=== PATIENT | female | born 1995 | race African-American/Black ===

== ENCOUNTER 2018-10-24 06:39 | Emergency (ER) | payer BC ==
--- NOTE | 2018-10-24 06:40 | EDM.PDOC ---
ED HPI GENERAL MEDICAL PROBLEM - General Chief Complaint: Neurological Problem Stated Complaint: Seizure Time Seen by Provider: 10/24/18 06:39 Source of Information: Reports: Patient, EMS, EMS Notes Reviewed ([facility] records not available). Denies: Old Records (No [facility] records available) History Limitations: Reports: Altered Mental Status - History of Present Illness INITIAL COMMENTS - FREE TEXT/NARRATIVE: Patient was brought to the emergency room via ambulance with elementary principal accompaniment with elementary principal intersecting the agency service coordinator prior to arrival to our facility. agency service coordinator did applying O2 by nonrebreather mask with a running lock placed by the paramedics with 1 mg of Versed given prior to arrival. The patient had an apparent grand mal seizure with secondary syncope, however no history of significant fall or injury. The seizure occurred at about 05:30 a.m. with an approximately 20 minute episode of nonresponsiveness, however no history of aspiration, urinary/stool incontinence, etc. Prior to the onset of the above seizure the patient had been experiencing 9/10 bilateral frontal headaches with previous history of intermittent chronic headaches and ibuprofen use. After Versed was administered the patient did become immediately responsive with some agitation but no direct postictal sedation. The patient denies any chest pain/ pressure, heart flutter, dizziness, orthostasis, orthopnea, diaphoresis, paresthesias, recent decreased exercise tolerance, or any other anginal-type symptoms. No recent history of abdominal pain, heartburn, nausea, diarrhea, melena, gross hematochezia, or any food intolerance, including fatty foods, etc.. The patient also denies any recent fever, cough, wheezing, dyspnea, etc.. Note history taken after patient became responsive in the emergency room as below. Accu-Chek by paramedics of 118 mg percent. Onset: Today, Sudden, Unknown/Unsure Onset Date: 10/24/18 Onset Time: 05:30 Duration: Constant Location: Reports: Head (Headache). Denies: Face, Neck, Chest, Back, Upper Extremity, Left, Upper Extremity, Right, Radiates to Quality: Reports: Throbbing Severity: Severe Improves with: Reports: None Worsens with: Reports: None Context: Reports: Other (As above). Denies: Sick Contact, Trauma Associated Symptoms: Reports: Confusion (Postictal confusion without significant sedation), Headaches, Seizure, Syncope. 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 Full term without complications during pregnancies or deliveries Musculoskeletal History: Reports: None. Denies: Fracture Neurological History: Reports: Headaches, Chronic. Denies: Seizure Psychiatric History: Reports: None Endocrine/Metabolic History: Reports: None Hematologic History: Reports: None Immunologic History: Reports: None Oncologic (Cancer) History: Reports: None Dermatologic History: Reports: None - Past Surgical History Head Surgeries/Procedures: Reports: None HEENT Surgical History: Reports: None Cardiovascular Surgical History: Reports: Valve Replacement Respiratory Surgical History: Reports: None GI Surgical History: Reports: None Female Surgical History: Reports: None Male Surgical History: Reports: None Endocrine Surgical History: Reports: None Neurological Surgical History: Reports: None Musculoskeletal Surgical History: Reports: None Oncologic Surgical History: Reports: None Dermatological Surgical History: Reports: None Social & Family History - Tobacco Use Smoking Status *Q: Current Every Day Smoker Years of Tobacco use: 5 Packs/Tins Daily: 0.5 Used Tobacco, but Quit: No Smoking Cessation Information Provided To Patient: Yes Second Hand Smoke Exposure: No Second Hand Smoke Education Provided: No - Alcohol Use Alcohol Use History: Yes Days Per Week of Alcohol Use: 0 Number of Drinks Per Day: 3 Number of Drinks Per Day Comment: Usually wine every 2 months. No previous DWIs , problems with alcohol abuse, etc. Total Drinks Per Week: 0 Alcohol Use in Last Twelve Months: Yes Alcohol Use Frequency: Rarely - Recreational Drug Use Recreational Drug Use: No Drug Use in Last 12 Months: No Recreational Drug Type: Denies: Amphetamines (Speed), Cocaine, Heroin, LSD (Acid ), Marijuana/Hashish, Methamphetamine, Morphine, Oxycodone - Living Situation & Occupation Living situation: Reports: Single (Never however 2 children), Alone Occupation: Employed ([employer]) ED ROS GENERAL - Review of Systems Review Of Systems: ROS reveals no pertinent complaints other than HPI. ED EXAM, NEURO - Physical Exam Exam: See Below Exam Limited By: Altered Mental Status General Appearance: No Apparent Distress, Anxious (Moderate), Lethargic Eye Exam: Bilateral Eye: EOMI, Normal Fundi (No nystagmus with seizure), Normal Inspection (Other than below), Periorbital Changes, Other (Note left upward gaze bilaterally with seizure activity however otherwise normal) Ears: Normal External Exam, Normal Canal, Hearing Grossly Normal, Normal TMs Nose: Normal Mucosa, No Blood, Clear Rhinorrhea (Moderate bilaterally) Throat/Mouth: Normal Inspection, Normal Lips, Normal Teeth, Normal Gums, Normal Oropharynx, Normal Voice, No Airway Compromise, Other (No evidence of tongue injury). No: Dysphagia, Perioral Cyanosis Head Exam: Atraumatic, Normocephalic. No: Facial Swelling, Facial Tenderness, Sinus Tenderness Neck: Normal Inspection, Supple, Non-Tender, Full Range of Motion, Other ( Negative meningeal signs). No: Carotid Bruit, Lymphadenopathy (L), Lymphadenopathy (R), Thyromegaly Respiratory/Chest: No Respiratory Distress, Lungs Clear, Normal Breath Sounds, No Accessory Muscle Use, Chest Non-Tender. No: Pleural Rub, Retractions Cardiovascular: Normal Peripheral Pulses, Regular Rate, Rhythm, No Edema, No Gallop, No JVD, No Murmur, No Rub. No: Gallop/S3, Gallop/S4, Friction Rub GI/Abdominal: Normal Bowel Sounds, Soft, Non-Tender, No Organomegaly, No Distention, No Abnormal Bruit, No Mass. No: Guarding (Female) Exam: Deferred Rectal (Female) Exam: Deferred Neurological: Normal Dorsiflexion, Normal Reflexes (Negative Babinski's, finger to nose, and pronator rotation tests. No evidence of facial paresis, tongue deviation, orthostasis, etc. While awake. Otherwise left upperward with seizure activity and borderline occasional clonic activity) Back Exam: Normal Inspection, Full Range of Motion. No: CVA Tenderness (L), CVA Tenderness (R), Muscle Spasm Extremities: Normal Inspection, Normal Range of Motion, Non-Tender, No Pedal Edema, Normal Capillary Refill. No: Angélica's Sign Psychiatric: Anxious (Moderate), Depressed Mood (Mild to moderate), Tearful Skin Exam: Warm, Dry, Intact, Normal Color, No Rash, Stud(s) (Multiple). No: Diaphoretic, Wound/Incision EKG INTERPRETATION EKG Date: 10/24/18 Time: 07:31 Rhythm: NSR Rate (Beats/Min): 86 [place]: Normal (Neutral cardiac axis) P-Wave: Enlarged (Mild diffuse biphasic P waves with pulmonary hypertension by EKG) QRS: Normal (Neuro 0.08 seconds) ST-T: Other (T-wave inversion in leads 3, V1, and V2) QT: Normal MI/PQ Interval: 0.15 seconds Comparison: NA - No Prior EKG EKG Interpretation Comments: 1. Questionable anterior wall cardiac ischemia versus lead placement 2. Probable left atrial enlargement. Course - Vital Signs Last Recorded V/S: Last Vital Signs Temp 37.0 C 10/24/18 07:11 Pulse 83 10/24/18 09:02 Resp 22 H 10/24/18 09:02 BP 107/55 L 10/24/18 09:02 Pulse Ox 99 10/24/18 09:02 Vital Signs - 24 hr 10/24/18 10/24/18 10/24/18 06:42 07:10 07:11 Temperature [ 36.8 C 37.0 C Temporal] Pulse, 76 82 Peripheral [ Left Pulse Oximetry] Respiratory 22 H 22 H Rate Blood Pressure 116/71 104/60 [Left Upper Arm ] O2 Sat by Pulse 100 99 Oximetry O2 Sat by Pulse 99 Oximetry [Room Air] 10/24/18 10/24/18 10/24/18 07:31 07:45 08:00 Temperature [ Temporal] Pulse, 87 92 92 Peripheral [ Left Pulse Oximetry] Respiratory 24 H 23 H 22 H Rate Blood Pressure 106/66 120/56 L 103/65 [Left Upper Arm ] O2 Sat by Pulse 98 100 100 Oximetry O2 Sat by Pulse Oximetry [Room Air] 10/24/18 10/24/18 10/24/18 08:15 08:32 08:47 Temperature [ Temporal] Pulse, 83 87 84 Peripheral [ Left Pulse Oximetry] Respiratory 22 H 20 19 Rate Blood Pressure 105/70 111/72 107/67 [Left Upper Arm ] O2 Sat by Pulse 100 100 87 L Oximetry O2 Sat by Pulse Oximetry [Room Air] 10/24/18 09:02 Temperature [ Temporal] Pulse, 83 Peripheral [ Left Pulse Oximetry] Respiratory 22 H Rate Blood Pressure 107/55 L [Left Upper Arm ] O2 Sat by Pulse 99 Oximetry O2 Sat by Pulse Oximetry [Room Air] - Orders/Labs/Meds Orders: Active Orders 24 hr Category Date Time Status Cardiac Monitoring [RC] STAT Care 10/24/18 06:42 Active EKG Documentation Completion [RC] ASDIRECTED Care 10/24/18 06:42 Active Oxygen Therapy, ED [RC] CONTINUOUS Care 10/24/18 06:42 Active Peripheral IV Care [RC] . DIRECTED Care 10/24/18 06:42 Active Pulse Oximetry [RC] CONTINUOUS Care 10/24/18 06:42 Active Up With Assistance [RC] ASDIRECTED Care 10/24/18 06:42 Active Vital Signs [RC] PFP Care 10/24/18 06:42 Active Nothing per Oral Now Diet [DIET] Diet 10/24/18 Breakfast Active Chest 1V Frontal [CR] Stat Exams 10/24/18 06:42 Taken Head wo Cont [CT] Stat Exams 10/24/18 06:42 Taken CULTURE URINE [RM] Routine Lab 10/24/18 06:57 Received PROLACTIN [REF] Stat Lab 10/24/18 06:57 Received D5 1/2 NS w/ 40 mEq/L KCl 1,000 ml Med 10/24/18 08:45 Active IV ASDIRECTED Phenytoin 1,000 mg Med 10/24/18 06:45 Active Sodium Chloride 0.9% [Normal Saline] 100 ml IV Q8H Sodium Chloride 0.9% [Saline Flush] Med 10/24/18 06:42 Active 10 ml FLUSH ASDIRECTED PRN Obtain Past Medical Record [OM.PC] Stat Oth 10/24/18 06:42 Active Peripheral IV Insertion Adult [OM.PC] Stat Oth 10/24/18 06:42 Ordered Resuscitation Status Stat Resus Stat 10/24/18 06:42 Ordered Medication Orders Phenytoin Sodium 1,000 mg/ (Sodium Chloride) 120 mls @ 480 mls/hr IV Q8H [facility] Last Admin: 10/24/18 06:47 Dose: 480 mls/hr Potassium Chloride/Dextrose/Sod Cl (D5 1/2 Ns W/ 40 Meq/L Kcl) 1,000 mls @ 125 mls/hr IV ASDIRECTED RADHA Last Admin: 10/24/18 08:41 Dose: 125 mls/hr Sodium Chloride (Saline Flush) 10 ml FLUSH ASDIRECTED PRN PRN Reason: Keep Vein Open Labs: Laboratory Tests 10/24/18 10/24/18 10/24/18 Range/Units 06:57 06:57 06:57 WBC 7.7 (4.0-10.2) K/uL RBC 4.30 (3.77-5.09) M/uL Hgb 14.1 (11.7-15.5) g/dL Hct 41.0 (34.0-46.0) % MCV 95.3 (84.0-98.0) fL MCH 32.8 (28.2-33.3) pg MCHC 34.4 (31.7-36.0) g/dL RDW 13.3 (11.2-14.1) % Plt Count 346 (150-350) K/uL Neut % (Auto) 53.9 (45.0-80.0) % Lymph % (Auto) 32.7 (10.0-50.0) % Towns % (Auto) 7.4 (2.0-14.0) % Eos % (Auto) 5.6 H (0.0-5.0) % Baso % (Auto) 0.4 (0.0-2.0) % Neut # (Auto) 4.18 (1.40-7.00) K/uL Lymph # (Auto) 2.53 (0.50-3.50) K/uL Towns # (Auto) 0.57 (0.00-1.00) K/uL Eos # (Auto) 0.43 (0.00-0.50) K/uL Baso # (Auto) 0.03 (0.00-0.20) K/uL PT 10.2 (9.5-12.0) SEC INR 0.9 APTT 27.3 (21.0-31.3) SEC D-Dimer, Quantitative (0-400) ng/mL Sodium (136-145) mmol/L Potassium (3.5-5.1) mmol/L Chloride (98-107) mmol/L Carbon Dioxide (21.0-32.0) mmol/L BUN (7-18) mg/dL Creatinine (0.51-1.17) mg/dL Est Cr Clr Drug Dosing Estimated GFR (MDRD) mL/min Glucose (74-106) mg/dL Lactic Acid (0.4-2.0) mmol/L Uric Acid (2.6-7.2) mg/dL Calcium (8.5-10.1) mg/dL Magnesium (1.8-2.4) mg/dL Total Bilirubin (0.2-1.0) mg/dL AST (15-37) U/L ALT (12-78) U/L Alkaline Phosphatase (46-116) IU/L Creatine Kinase (26-308) U/L Creatine Kinase Index (0.0-2.5) % CK-MB (CK-2) (0.00-3.60) ng/mL Troponin I (0.000-0.056) ng/mL NT-Pro-B Natriuret Pep (0-125) pg/mL Total Protein (6.4-8.2) g/dL Albumin (3.4-5.0) g/dL TSH, Ultra Sensitive (0.358-3.740) mIU/mL HCG, Qual (NEGATIVE) Specimen Type [place] Urine Color Light yellow Urine Appearance Clear Urine pH 7.0 (5.0-9.0) Ur Specific [place] 1.010 (1.005-1.030) Urine Protein Negative (NEGATIVE) mg/dL Urine Glucose (UA) Negative (NEGATIVE) mg/dL Urine Ketones Negative (NEGATIVE) mg/dL Urine Occult Blood Moderate H (NEGATIVE) Urine Nitrite Negative (NEGATIVE) Urine Bilirubin Negative (NEGATIVE) Urine Urobilinogen 0.2 (0.2-1.0) E.U./dL Ur Leukocyte Esterase Negative (NEGATIVE) Urine RBC Not seen /HPF Urine WBC 0-5 /HPF Ur Epithelial Cells Few /LPF Urine Bacteria Few (NONE TO FEW) /HPF Urine Opiates Screen (NEGATIVE) Ur Barbiturates Screen (NEGATIVE) Ur Amphetamine Screen (NEGATIVE) U Methamphetamines Scrn (NEGATIVE) U Benzodiazepines Scrn (NEGATIVE) U Cocaine Metab Screen (NEGATIVE) U Marijuana (THC) Screen (NEGATIVE) Ethyl Alcohol (0.000-0.080) g/dL 10/24/18 10/24/18 10/24/18 Range/Units 06:57 06:57 06:57 WBC (4.0-10.2) K/uL RBC (3.77-5.09) M/uL Hgb (11.7-15.5) g/dL Hct (34.0-46.0) % MCV (84.0-98.0) fL MCH (28.2-33.3) pg MCHC (31.7-36.0) g/dL RDW (11.2-14.1) % Plt Count (150-350) K/uL Neut % (Auto) (45.0-80.0) % Lymph % (Auto) (10.0-50.0) % Towns % (Auto) (2.0-14.0) % Eos % (Auto) (0.0-5.0) % Baso % (Auto) (0.0-2.0) % Neut # (Auto) (1.40-7.00) K/uL Lymph # (Auto) (0.50-3.50) K/uL Towns # (Auto) (0.00-1.00) K/uL Eos # (Auto) (0.00-0.50) K/uL Baso # (Auto) (0.00-0.20) K/uL PT (9.5-12.0) SEC INR APTT (21.0-31.3) SEC D-Dimer, Quantitative 285 (0-400) ng/mL Sodium 143 (136-145) mmol/L Potassium 2.8 L* (3.5-5.1) mmol/L Chloride 103 (98-107) mmol/L Carbon Dioxide 27.4 (21.0-32.0) mmol/L BUN 2 L (7-18) mg/dL Creatinine 0.38 L (0.51-1.17) mg/dL Est Cr Clr Drug Dosing TNP Estimated GFR (MDRD) > 60 mL/min Glucose 91 (74-106) mg/dL Lactic Acid 1.1 (0.4-2.0) mmol/L Uric Acid 5.2 (2.6-7.2) mg/dL Calcium 9.1 (8.5-10.1) mg/dL Magnesium 1.8 (1.8-2.4) mg/dL Total Bilirubin 0.3 (0.2-1.0) mg/dL AST 28 (15-37) U/L ALT 30 (12-78) U/L Alkaline Phosphatase 111 (46-116) IU/L Creatine Kinase 468 H (26-308) U/L Creatine Kinase Index 0.4 (0.0-2.5) % CK-MB (CK-2) 2.10 (0.00-3.60) ng/mL Troponin I 0.000 (0.000-0.056) ng/mL NT-Pro-B Natriuret Pep 35 (0-125) pg/mL Total Protein 7.9 (6.4-8.2) g/dL Albumin 3.8 (3.4-5.0) g/dL TSH, Ultra Sensitive 0.616 (0.358-3.740) mIU/mL HCG, Qual (NEGATIVE) Specimen Type Urine Color Urine Appearance Urine pH (5.0-9.0) Ur Specific [place] (1.005-1.030) Urine Protein (NEGATIVE) mg/dL Urine Glucose (UA) (NEGATIVE) mg/dL Urine Ketones (NEGATIVE) mg/dL Urine Occult Blood (NEGATIVE) Urine Nitrite (NEGATIVE) Urine Bilirubin (NEGATIVE) Urine Urobilinogen (0.2-1.0) E.U./dL Ur Leukocyte Esterase (NEGATIVE) Urine RBC /HPF Urine WBC /HPF Ur Epithelial Cells /LPF Urine Bacteria (NONE TO FEW) /HPF Urine Opiates Screen (NEGATIVE) Ur Barbiturates Screen (NEGATIVE) Ur Amphetamine Screen (NEGATIVE) U Methamphetamines Scrn (NEGATIVE) U Benzodiazepines Scrn (NEGATIVE) U Cocaine Metab Screen (NEGATIVE) U Marijuana (THC) Screen (NEGATIVE) Ethyl Alcohol 0.002 (0.000-0.080) g/dL 10/24/18 10/24/18 Range/Units 06:57 06:57 WBC (4.0-10.2) K/uL RBC (3.77-5.09) M/uL Hgb (11.7-15.5) g/dL Hct (34.0-46.0) % MCV (84.0-98.0) fL MCH (28.2-33.3) pg MCHC (31.7-36.0) g/dL RDW (11.2-14.1) % Plt Count (150-350) K/uL Neut % (Auto) (45.0-80.0) % Lymph % (Auto) (10.0-50.0) % Towns % (Auto) (2.0-14.0) % Eos % (Auto) (0.0-5.0) % Baso % (Auto) (0.0-2.0) % Neut # (Auto) (1.40-7.00) K/uL Lymph # (Auto) (0.50-3.50) K/uL Towns # (Auto) (0.00-1.00) K/uL Eos # (Auto) (0.00-0.50) K/uL Baso # (Auto) (0.00-0.20) K/uL PT (9.5-12.0) SEC INR APTT (21.0-31.3) SEC D-Dimer, Quantitative (0-400) ng/mL Sodium (136-145) mmol/L Potassium (3.5-5.1) mmol/L Chloride (98-107) mmol/L Carbon Dioxide (21.0-32.0) mmol/L BUN (7-18) mg/dL Creatinine (0.51-1.17) mg/dL Est Cr Clr Drug Dosing Estimated GFR (MDRD) mL/min Glucose (74-106) mg/dL Lactic Acid (0.4-2.0) mmol/L Uric Acid (2.6-7.2) mg/dL Calcium (8.5-10.1) mg/dL Magnesium (1.8-2.4) mg/dL Total Bilirubin (0.2-1.0) mg/dL AST (15-37) U/L ALT (12-78) U/L Alkaline Phosphatase (46-116) IU/L Creatine Kinase (26-308) U/L Creatine Kinase Index (0.0-2.5) % CK-MB (CK-2) (0.00-3.60) ng/mL Troponin I (0.000-0.056) ng/mL NT-Pro-B Natriuret Pep (0-125) pg/mL Total Protein (6.4-8.2) g/dL Albumin (3.4-5.0) g/dL TSH, Ultra Sensitive (0.358-3.740) mIU/mL HCG, Qual Negative (NEGATIVE) Specimen Type Urine Color Urine Appearance Urine pH (5.0-9.0) Ur Specific [place] (1.005-1.030) Urine Protein (NEGATIVE) mg/dL Urine Glucose (UA) (NEGATIVE) mg/dL Urine Ketones (NEGATIVE) mg/dL Urine Occult Blood (NEGATIVE) Urine Nitrite (NEGATIVE) Urine Bilirubin (NEGATIVE) Urine Urobilinogen (0.2-1.0) E.U./dL Ur Leukocyte Esterase (NEGATIVE) Urine RBC /HPF Urine WBC /HPF Ur Epithelial Cells /LPF Urine Bacteria (NONE TO FEW) /HPF Urine Opiates Screen Negative (NEGATIVE) Ur Barbiturates Screen Negative (NEGATIVE) Ur Amphetamine Screen Negative (NEGATIVE) U Methamphetamines Scrn Negative (NEGATIVE) U Benzodiazepines Scrn Negative (NEGATIVE) U Cocaine Metab Screen Negative (NEGATIVE) U Marijuana (THC) Screen Positive H (NEGATIVE) Ethyl Alcohol (0.000-0.080) g/dL Meds: Medications Generic Name Dose Route Start Last Admin Trade Name Freq PRN Reason Stop Dose Admin Phenytoin Sodium 1,000 mg/ 120 mls @ 480 mls/hr 10/24/18 06:45 10/24/18 06:47 Sodium Chloride IV 480 mls/hr Q8H RADHA Administration Potassium Chloride/Dextrose/Sod Cl 1,000 mls @ 125 mls/hr 10/24/18 08:45 09/30 08:41 D5 1/2 Ns W/ 40 Meq/L Kcl IV 125 mls/hr ASDIRECTED RADHA Administration Sodium Chloride 10 ml 10/24/18 06:42 Saline Flush FLUSH ASDIRECTED PRN Keep Vein Open Discontinued Medications Generic Name Dose Route Start Last Admin Trade Name Freq PRN Reason Stop Dose Admin Diazepam 5 mg 10/24/18 06:45 10/24/18 07:05 Valium IV 10/24/18 06:46 5 mg ONETIME ONE Administration Diazepam 2.5 mg 10/24/18 07:11 10/24/18 07:16 Valium IV 10/24/18 07:12 2.5 mg ONETIME ONE Administration Famotidine 40 mg 10/24/18 06:42 10/24/18 07:39 Pepcid IVPUSH 10/24/18 06:43 40 mg ONETIME ONE Administration - Radiology Interpretation Free Text/Narrative:: Monitor shows normal sinus rhythm and with heart rate in the 70s to 90s with very occasional PVCs but no other significant arrhythmia Chest x-ray, portable, shows somewhat poor inspiratory film with borderline cardiomegaly and centralized pulmonary congestion but no pulmonary infiltrates, pneumothorax, etc. . Moderate elevated right hemidiaphragm. Telephone consultation at 07:40 hours with the radiology department at [facility] with preliminary verbal report of noncontrast CT of the head. No evidence of acute findings, including cerebral hemorrhage, CVA, etc. CT Results Date: 10/24/18 CT Results Time: 07:40 Departure - Departure Time of Disposition: 09:25 Disposition: DC/Tfer to [facility] 02 Condition: Good Clinical Impression: Grand mal seizure, PVCs (premature ventricular contractions), Mixed anxiety depressive disorder, Hypokalemia, Illicit drug use, Tobacco abuse counseling Headache Qualifiers: Headache type: unspecified Headache chronicity pattern: acute headache Intractability: intractable Qualified Code(s): R51 - Headache - Discharge Information *PRESCRIPTION DRUG MONITORING PROGRAM REVIEWED*: Not Applicable *COPY OF PRESCRIPTION DRUG MONITORING REPORT IN PATIENT SABRINA: Not Applicable Referrals: PCP,None [Primary Care Provider] - Forms: ED Department Discharge, Interfacility Transfer EMTALA - Problem List & Annotations (1) Grand mal seizure SNOMED Code(s): 10810422 Code(s): G40.409 - OTH GENERALIZED EPILEPSY, NOT INTRACTABLE, W/O STAT EPI Status: Acute Priority: High Onset Date: 10/24/18 Annotation/Comment:: Recurrent borderline status activity 3 until completion of above treatment regimen with minimal tonic reaction, however persistent left upper gaze with each episode. Note that each episode lasted for about 5 minutes with some moderate brief postictal confusion and anxiety but no significant sedation. No evidence of incontinence either prior to arrival or during emergency room care. Note that patient did receive 1 g of Versed from the elementary principal as above with 5 mg of diazepam and 1 g of IV Dilantin initiated immediately upon patient's arrival to this facility. Patient did require an additional 2.5 mg IV dose of diazepam until improvement of her symptoms. Patient did continue to remain agitated during her care, however. Note negative CT scan of the head as above with positive urine drug screen for marijuana. Initial telephone consultation with [facility] in [place] at 07:40 hours with subsequent telephone consultation at 07:[address] Reilly, hospitalist, who does agree to accept the patient for direct admission, with no further treatment recommendations given. Note that Dr. Rosario, neurological children's program coordinator, was also on the phone at the same time. Dr. Ceballos, neurologist, was also subsequently consulted by the above physicians with no further treatment recommendations. Vital signs, etc. were stable at time of transfer. Note some delay in hospital transfer secondary to ambulance and availability without sequelae. Some evidence of possible previous sleep deprivation. Blank [employer] work release form provided for the [place] physicians at discharge from their facility. (2) Headache SNOMED Code(s): 21841973 Code(s): R51 - HEADACHE Status: Acute Priority: High Onset Date: Annotation/Comment:: MRI of the brain recommended secondary to headache and above seizure activity, etc. Qualifiers: Headache type: unspecified Headache chronicity pattern: acute headache Intractability: intractable Qualified Code(s): R51 - Headache (3) Mixed anxiety depressive disorder SNOMED Code(s): 449451668 Code(s): F41.8 - OTHER SPECIFIED ANXIETY DISORDERS Status: Acute Priority : Medium Annotation/Comment:: Moderate control based on today's exam. No current medical therapy. (4) PVCs (premature ventricular contractions) SNOMED Code(s): 84121083 Code(s): I49.3 - VENTRICULAR PREMATURE DEPOLARIZATION Status: Acute Priority: Medium Onset Date: 10/24/18 Annotation/Comment:: Non-Symptomatic PVCs with no recent chest pain or anginal type symptoms. Nonspecific EKG changes as above likely secondary to lead placement. Observe for now. (5) Hypokalemia SNOMED Code(s): 41276810 Code(s): E87.6 - HYPOKALEMIA Status: Acute Priority: Medium Onset Date : 10/24/18 Annotation/Comment:: IV fluids initiated as above. (6) Illicit drug use SNOMED Code(s): 205321649 Code(s): F19.90 - OTHER PSYCHOACTIVE SUBSTANCE USE, UNSPECIFIED, UNCOMPLICATED Status: Acute Priority: Medium Annotation/Comment:: Positive urine drug screen as above for marijuana however patient denies use. (7) Tobacco abuse counseling SNOMED Code(s): 644841992, 867588608, [id number] Code(s): Z71.6 - TOBACCO ABUSE COUNSELING Status: Chronic Priority: Medium Annotation/Comment:: Tobacco cessation strongly encouraged with information provided at discharge. - Problem List Review Problem List Initiated/Reviewed/Updated: Yes - My Orders Last 24 Hours: My Active Orders 10/24/18 06:42 Cardiac Monitoring [RC] STAT EKG Documentation Completion [RC] ASDIRECTED Oxygen Therapy, ED [RC] CONTINUOUS Peripheral IV Care [RC] . DIRECTED Pulse Oximetry [RC] CONTINUOUS Up With Assistance [RC] ASDIRECTED Vital Signs [RC] PFP Chest 1V Frontal [CR] Stat Head wo Cont [CT] Stat Sodium Chloride 0.9% [Saline Flush] 10 ml FLUSH ASDIRECTED PRN Obtain Past Medical Record [OM.PC] Stat Peripheral IV Insertion Adult [OM.PC] Stat Resuscitation Status Stat 10/24/18 06:45 Phenytoin 1,000 mg Sodium Chloride 0.9% [Normal Saline] 100 ml IV Q8H 10/24/18 06:57 CULTURE URINE [RM] Routine PROLACTIN [REF] Stat 10/24/18 08:45 D5 1/2 NS w/ 40 mEq/L KCl 1,000 ml IV ASDIRECTED 10/24/18 Breakfast Nothing per Oral Now Diet [DIET] - Assessment/Plan Last 24 Hours: My Active Orders 10/24/18 06:42 Cardiac Monitoring [RC] STAT EKG Documentation Completion [RC] ASDIRECTED Oxygen Therapy, ED [RC] CONTINUOUS Peripheral IV Care [RC] . DIRECTED Pulse Oximetry [RC] CONTINUOUS Up With Assistance [RC] ASDIRECTED Vital Signs [RC] PFP Chest 1V Frontal [CR] Stat Head wo Cont [CT] Stat Sodium Chloride 0.9% [Saline Flush] 10 ml FLUSH ASDIRECTED PRN Obtain Past Medical Record [OM.PC] Stat Peripheral IV Insertion Adult [OM.PC] Stat Resuscitation Status Stat 10/24/18 06:45 Phenytoin 1,000 mg Sodium Chloride 0.9% [Normal Saline] 100 ml IV Q8H 10/24/18 06:57 CULTURE URINE [RM] Routine PROLACTIN [REF] Stat 10/24/18 08:45 D5 1/2 NS w/ 40 mEq/L KCl 1,000 ml IV ASDIRECTED 10/24/18 Breakfast Nothing per Oral Now Diet [DIET] Assessment:: As above Plan: As above. Extensive precautions were given to the patient, who is in agreement with the treatment plan. Ambulance transfer with elementary principal accompaniment.
[2018-10-24] MEDS ORDERED: Phenytoin 1,000 MG in Sodium Chloride 0.9% 100 ML IV ONE (06:42)
[2018-10-24] MEDS ORDERED: Famotidine 20 MG/2 ML SDV IVPUSH ONE (06:42)
[2018-10-24] MEDS ORDERED: Sodium Chloride 0.9% 10 ML Syringe FLUSH PRN (06:42)
[2018-10-24] MEDS ORDERED: Phenytoin 1,000 MG in Sodium Chloride 0.9% 100 ML IV SCH (06:45)
[2018-10-24] MEDS ORDERED: diazePAM 5 MG/ML MDV IV ONE ×2 (06:45→07:11)
[2018-10-24 07:32] LABS: CHLORIDE,CL 103 mmol/L (98-107); SODIUM,NA 143 mmol/L (136-145)
[2018-10-24] MEDS ORDERED: D5 1/2 NS w/ 40 mEq/L KCl 1,000 ML IV SCH (08:45)
== END 2018-10-24 09:25 ==
LOC: LL.ED 06:39
DX: G40.409 Other generalized epilepsy and epileptic syndromes, not intractable, without status epilepticus (principal); F17.210 Nicotine dependence, cigarettes, uncomplicated; F41.8 Other specified anxiety disorders; I49.3 Ventricular premature depolarization; E87.6 Hypokalemia; R51 Headache; Z71.6 Tobacco abuse counseling
CPT/HCPCS: 70450; 71045; 80053; 80305; 81001; 82550; 82553; 83605; 83735; 83880; 84146; 84443; 84484; 84550; 84703; 85025; 85379; 85610; 85730; 87086; 93005; 96361; 96365; 96375; 99285; G0480; J1165; J3360; J3480; J3490; J7050; 36415

== ENCOUNTER 2019-07-03 09:55 | Emergency (ER) | payer BC ==
[2019-07-03 10:42] LABS: CHLORIDE,CL 106 mmol/L (98-107); SODIUM,NA 142 mmol/L (136-145)
[2019-07-03] MEDS ORDERED: methylPREDNISolone Sodium Succinate 125 MG/2 ML SDV IM ONE (10:55)
--- NOTE | 2019-07-03 11:05 | EDM.PDOC ---
ED HPI GENERAL MEDICAL PROBLEM - General Chief Complaint: Respiratory Problem Stated Complaint: cough,sore throat Time Seen by Provider: 07/03/19 10:30 Source of Information: Reports: Patient History Limitations: Reports: No Limitations - History of Present Illness INITIAL COMMENTS - FREE TEXT/NARRATIVE: Patient reports having cough for approximately one month. Was seen in clinic after initially being sick and prescribed an antibiotic. She does not recall name of medicine but says it was for 5 days, presumably Z-Pack. No overall change in symptoms experienced. Continued to have bothersome cough, but no fevers/chills/sweats. Denied pain/SOB at that time. No other complaints. Because cough still did not improve, she was seen again at the clinic. This time prescribed an inhaler, Prednisone (still has several days left of Rx), and Bactrim. Continued to smoke until two days ago. Became concerned as she has some chills/sweats last night for first time. Also has left sided chest pain with coughing and with palpation over pectoral muscles. Complains of poor sleep due to cough, but admits that the inhaler and Guiatussin do help with the cough. chest/throat pain Pain Score (Numeric/FACES): 7 - Related Data Allergies Allergy/AdvReac Type Severity Reaction Status Date / Time No Known Allergies Allergy Verified 07/03/19 10:00 Home Meds: Home Meds Albuterol Sulfate [Proair Respiclick] 90 mcg IH Q4HR PRN 07/03/19 [History] Doxycycline [Vibramycin] 100 mg PO BID #10 cap 07/03/19 [Rx] Sulfamethoxazole/Trimethoprim [Sulfamethoxazole-Tmp Ds Tablet] 1 each PO BID [History] guaiFENesin/Codeine Phosphate [Guaiatussin AC Liquid] 10 ml PO Q4HR PRN [History] guaiFENesin/Dextromethorphan [Mucinex Dm ER 1,200-60 mg Tab] 1 each PO Q12HR [History] predniSONE [Prednisone] 40 mg PO DAILY 07/03/19 [History] Past Medical History HEENT History: Reports: None Cardiovascular History: Reports: None Respiratory History: Reports: None Gastrointestinal History: Reports: None Genitourinary History: Reports: None 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 PROFESSOR History: Full term without complications during pregnancies or deliveries Musculoskeletal History: Reports: None Neurological History: Reports: None Psychiatric History: Reports: None Endocrine/Metabolic History: Reports: None Hematologic History: Reports: None Immunologic History: Reports: None Oncologic (Cancer) History: Reports: None Dermatologic History: Reports: None - Past Surgical History Head Surgeries/Procedures: Reports: None HEENT Surgical History: Reports: None Cardiovascular Surgical History: Reports: None Respiratory Surgical History: Reports: None GI Surgical History: Reports: None Female Surgical History: Reports: None Endocrine Surgical History: Reports: None Neurological Surgical History: Reports: None Musculoskeletal Surgical History: Reports: None Oncologic Surgical History: Reports: None Dermatological Surgical History: Reports: None Social & Family History - Tobacco Use Smoking Status *Q: Current Every Day Smoker Years of Tobacco use: 4 Packs/Tins Daily: 0.2 Used Tobacco, but Quit: No Second Hand Smoke Exposure: No - Caffeine Use Caffeine Use: Reports: None - Recreational Drug Use Recreational Drug Use: No - Living Situation & Occupation Living situation: Reports: Single (Never however 2 children), Alone Occupation: Employed ([employer]) ED ROS GENERAL - Review of Systems Review Of Systems: See Below Constitutional: Reports: Chills, Malaise, Night Sweats. Denies: Fever, Weight Loss HEENT: Reports: No Symptoms. Denies: Sinus Problem, Throat Pain, Throat Swelling Respiratory: Reports: Wheezing, Cough, Other (left sided chest pain with palpation and coughing). Denies: Shortness of Breath, Sputum, Hemoptysis Cardiovascular: Denies: Dyspnea on Exertion, Edema, Orthopnea, Palpitations, Syncope GI/Abdominal: Reports: No Symptoms : Reports: No Symptoms Musculoskeletal: Reports: No Symptoms Skin: Reports: No Symptoms Neurological: Reports: No Symptoms Psychiatric: Reports: No Symptoms ED EXAM, GENERAL - Physical Exam Exam: See Below Exam Limited By: No Limitations General Appearance: Alert, No Apparent Distress Eye Exam: Bilateral Eye: EOMI, PERRL Ears: Normal External Exam Nose: No: Nasal Deformity, Nasal Swelling, Nasal Drainage Throat/Mouth: Normal Lips, Normal Voice, No Airway Compromise Head: Atraumatic, Normocephalic Neck: Supple, Non-Tender Respiratory/Chest: No Respiratory Distress, Wheezing (noted anteriorly, bilaterally). No: Crackles, Rales, Rhonchi, Stridor, Accessory Muscle Use, Retractions, Prolonged Expiration Cardiovascular: Regular Rate, Rhythm, No Edema, No Murmur GI/Abdominal: Normal Bowel Sounds, Soft, Non-Tender, No Distention (Female) Exam: Deferred Rectal (Female) Exam: Deferred Back Exam: Normal Inspection Extremities: Normal Inspection, Normal Capillary Refill Neurological: Alert, Oriented, Normal Cognition, Normal Gait, No Motor/Sensory Deficits Psychiatric: Normal Affect, Normal Mood Skin Exam: Warm, Dry, Intact, Normal Color Course - Vital Signs Last Recorded V/S: Last Vital Signs Temp 36.8 C 07/03/19 09:57 Pulse 75 07/03/19 09:57 Resp 12 07/03/19 09:57 BP 98/76 07/03/19 09:57 Pulse Ox 93 L 07/03/19 09:57 - Orders/Labs/Meds Orders: Active Orders 24 hr Category Date Time Status Incentive Breathing [RT Incentive Spirometry] [RC] Care 07/03/19 11:05 Ordered ASDIRECTED RT Aerosol Therapy [RC] ASDIRECTED Care 07/03/19 11:06 Ordered Chest 2V [CR] Stat Exams 07/03/19 10:17 Taken Labs: Laboratory Tests 07/03/19 07/03/19 Range/Units 10:20 10:20 WBC 7.0 (4.0-10.2) K/uL RBC 3.94 (3.77-5.09) M/uL Hgb 12.7 (11.7-15.5) g/dL Hct 38.2 (34.0-46.0) % MCV 97.0 (84.0-98.0) fL MCH 32.2 (28.2-33.3) pg MCHC 33.2 (31.7-36.0) g/dL RDW 12.9 (11.2-14.1) % Plt Count 347 (150-350) K/uL Neut % (Auto) 55.6 (45.0-80.0) % Lymph % (Auto) 30.1 (10.0-50.0) % Sherman % (Auto) 13.6 (2.0-14.0) % Eos % (Auto) 0.4 (0.0-5.0) % Baso % (Auto) 0.3 (0.0-2.0) % Neut # (Auto) 3.88 (1.40-7.00) K/uL Lymph # (Auto) 2.10 (0.50-3.50) K/uL Sherman # (Auto) 0.95 (0.00-1.00) K/uL Eos # (Auto) 0.03 (0.00-0.50) K/uL Baso # (Auto) 0.02 (0.00-0.20) K/uL Sodium 142 (136-145) mmol/L Potassium 4.0 (3.5-5.1) mmol/L Chloride 106 (98-107) mmol/L Carbon Dioxide 27.5 (21.0-32.0) mmol/L BUN 9 (7-18) mg/dL Creatinine 0.50 L (0.51-1.17) mg/dL Est Cr Clr Drug Dosing 137.22 mL/min Estimated GFR (MDRD) > 60 mL/min Glucose 105 (74-106) mg/dL Calcium 8.8 (8.5-10.1) mg/dL Total Bilirubin 0.3 (0.2-1.0) mg/dL AST 14 L (15-37) U/L ALT 20 (12-78) U/L Alkaline Phosphatase 71 (46-116) IU/L Total Protein 7.0 (6.4-8.2) g/dL Albumin 3.0 L (3.4-5.0) g/dL Meds: Medications Discontinued Medications Generic Name Dose Route Start Last Admin Trade Name Freq PRN Reason Stop Dose Admin Albuterol/Ipratropium 3 ml 07/03/19 11:06 Duoneb 3.0-0.5 Mg/3 Ml NEB 07/03/19 11:07 ONETIME ONE Methylprednisolone Sodium Succinate 125 mg 07/03/19 10:55 Solu-Medrol IM 07/03/19 10:56 ONETIME ONE - Radiology Interpretation Free Text/Narrative:: Xray of lung shows no obvious focal infiltrates suggestive of bacterial pneumonia. Radiology to review. - Re-Assessments/Exams Free Text/Narrative Re-Assessment/Exam: 07/03/19 11:20 Xray overall unremarkable. WBC normal. CBC and Chem unremarkable. Exam noted bilateral wheezing. O2 sats 93-94% on room air while resting. Suspect reactive airway disease component considering exam and good response to inhaler. Given the lack of obvious changes s/p Z-pack and Bactrim, suspect that this very likely was triggered by viral respiratory infection. Patient given SoluMedrol IM and DuoNeb. Will change from Bactrim to Doxy course to cover for atypicals. Patient encouraged to regularly use the inhaler she has every 6 hours for the next week and then return to PRN use. Precautions reviewed. To follow up as needed. Encouraged to continue to refrain from smoking. Departure - Departure Time of Disposition: 11:30 Disposition: Home, Self-Care 01 Condition: Good Clinical Impression: Bronchitis, Tobacco abuse counseling Reactive airway disease Qualifiers: Asthma severity: mild Asthma persistence: unspecified Qualified Code(s): J45.909 - Unspecified asthma, uncomplicated - Discharge Information *PRESCRIPTION DRUG MONITORING PROGRAM REVIEWED*: Not Applicable *COPY OF PRESCRIPTION DRUG MONITORING REPORT IN PATIENT SABRINA: Not Applicable Prescriptions: Doxycycline [Vibramycin] 100 mg PO BID #10 cap Instructions: Cough, Adult, Buix-ag-Ykoo, Metered Dose Inhaler (No Spacer Used) , Acute Bronchitis, Adult, Touf-ha-Ppst, Steps to Quit Smoking Forms: ED Department Discharge Additional Instructions: STOP SMOKING! This is your chance to quit. If you continue to smoke, you will likely have multiple similar episode of illness similar to this one for the rest of your life. NO Prednisone today. You may resume the Prednisone tabs you have tomorrow night and take one tablet every day until they are gone. You have four remaining tabs in the bottle. STOP the Sulfa antibiotic you currently have and throw it away. Take the Doxy you were given once every 12 hours. You have a 5 day supply from us and can picker and packer another 5 days at the pharmacy. If you do not improve over the next 7-10 days, get rechecked. If you have worsening symptoms, get rechecked. As discussed this may be due to a viral infection and antibiotics will not be of assistance. It is not recommended that you get another round of antibiotics after this one unless you are clearly getting worse and there is a bacterial infection identified on xray or blood work. Continue to use the inhaler 1-2 puffs every 6 hours for the next week, then go to "as-needed" use. As needed means 1-2 puffs every 4-6 hours to treat cough or wheezing/shortness of breath. - My Orders Last 24 Hours: My Active Orders 07/03/19 10:17 Chest 2V [CR] Stat 07/03/19 11:05 Incentive Breathing [RT Incentive Spirometry] [RC] ASDIRECTED 07/03/19 11:06 RT Aerosol Therapy [RC] ASDIRECTED - Assessment/Plan Last 24 Hours: My Active Orders 07/03/19 10:17 Chest 2V [CR] Stat 07/03/19 11:05 Incentive Breathing [RT Incentive Spirometry] [RC] ASDIRECTED 07/03/19 11:06 RT Aerosol Therapy [RC] ASDIRECTED
[2019-07-03] MEDS ORDERED: Albuterol/Ipratropium 3.0-0.5 MG/3 ML Neb Soln NEB ONE (11:06)
== END 2019-07-03 11:45 | disposition home or self-care (01) ==
LOC: LL.ED 09:55
DX: J45.909 Unspecified asthma, uncomplicated (principal); F17.210 Nicotine dependence, cigarettes, uncomplicated; Z71.6 Tobacco abuse counseling; Z79.899 Other long term (current) drug therapy
CPT/HCPCS: 36415; 71046; 80053; 85025; 96372; 99283; J2930; J7620-GY

== ENCOUNTER 2020-06-16 07:08 | Emergency (ER) | payer BC, OTHER ==
[2020-06-16] MEDS ORDERED: Bacitracin/Neomycin/Polymyxin B Oint 0.9 GM U/D Packet ONE (07:51)
[2020-06-16] MEDS ORDERED: Diphtheria,Pertussis(Acell),Tetanus Vaccine 0.5 ML SDV ONE (07:53)
--- NOTE | 2020-06-16 12:12 | EDM.PDOC ---
ED HPI GENERAL MEDICAL PROBLEM - General Chief Complaint: Upper Extremity Injury/Pain Stated Complaint: Right arm pain Time Seen by Provider: 06/16/20 07:20 Source of Information: Reports: Patient, Old Records ([facility] EMR. No paper hospital chart available.) History Limitations: Reports: No Limitations - History of Present Illness INITIAL COMMENTS - FREE TEXT/NARRATIVE: Patient was brought to the emergency room via transport vehicle from [facility] for evaluation of a Workmen's Compensation injury, which occurred at about 6 AM this morning. The patient accidentally caught her right arm between 2 metal carts with 10/10 right wrist and right arm pain after she tried pulling this arm from the carts. She also suffered a superficial laceration on her hand with no history of foreign body, paresthesias, neurological deficits, etc. She has not injured this extremity in the past, however the patient is right-handed. A dressing and short arm palmar splint was placed by the [facility] nurse prior to transfer to this facility with 400 mg of ibuprofen also taken at 6:45 AM. She denies any fall, neck/back pain, neurological deficits, or other complaints or i njuries. No recent history of abdominal pain, heartburn, nausea, diarrhea, melena, gross hematochezia, or any food intolerance, including fatty foods, etc.. The patient also denies any recent fever, cough, wheezing, dyspnea, etc.. Her pain did improve to 5/10 at time of arrival. Onset: Today, Sudden Onset Date: 06/16/20 Onset Time: 06:00 Duration: Improving Location: Reports: Upper Extremity, Right. Denies: Head, Face, Neck, Chest, Abdomen, Back, Pelvis, Upper Extremity, Left, Radiates to Quality: Reports: Same as Previous Episode, Throbbing Severity: Severe Improves with: Reports: Rest Worsens with: Reports: Movement Context: Reports: Trauma (As above) Associated Symptoms: Denies: Confusion, Chest Pain, Cough, Diaphoresis, Fever/Chills, Headaches, Nausea/Vomiting, Seizure, Shortness of Breath, Syncope, Weakness Treatments [employer] MANAGER: Reports: Dressing(s), NSAIDS, Splint(s) - Related Data Allergies Allergy/AdvReac Type Severity Reaction Status Date / Time No Known Allergies Allergy Verified 07/03/19 10:00 Home Meds: Home Meds Albuterol Sulfate [Proair Respiclick] 90 mcg IH Q4HR PRN 07/03/19 [History] Codeine Phosphate/Guaifenesin [Guaiatussin AC Liquid] 10 ml PO Q4HR PRN 07/03/19 [History] Doxycycline [Vibramycin] 100 mg PO BID #10 cap 07/03/19 [Rx] Sulfamethoxazole/Trimethoprim [Sulfamethoxazole-Tmp Ds Tablet] 1 each PO BID 07/03/19 [History] guaiFENesin/Dextromethorphan [Mucinex Dm ER 1,200-60 mg Tab] 1 each PO Q12HR 07/03/19 [History] predniSONE [Prednisone] 40 mg PO DAILY 07/03/19 [History] Past Medical History HEENT History: Reports: Allergic Rhinitis Cardiovascular History: Reports: Arrhythmia, Other (See Below). Denies: Hypertension, Syncope Other Cardiovascular History: Sinus arrhythmia and PVCs. Questionable anterior wall cardiac ischemia versus nonspecific changes secondary to seizure by EKG on 10/24/2018 with no cardiac work-up. Respiratory History: Reports: Asthma, Bronchitis, Recurrent Gastrointestinal History: Reports: None Genitourinary History: Reports: None ENGINEERING MGR History: Reports: . Denies: Spontaneous : 2 Para: 2 LMP (Approximate): Other (See Below) Other ENGINEERING MGR History: Full term without complications during pregnancies or deliveries Musculoskeletal History: Reports: Other (See Below). Denies: Fracture Other Musculoskeletal History: Rhabdomyolysis secondary to seizure on 10/24/2018. Neurological History: Reports: Seizure, Other (See Below) Other Neuro History: Complex partial seizure disorder on 10/24/2018 with transfer to [facility] in [place] and further work-up as below. Note acute encephalopathy at that time. Psychiatric History: Reports: Addiction, Anxiety, Depression, Other (See Below) Other Psychiatric History: Positive marijuana screen in October 2018 at [facility]. Endocrine/Metabolic History: Reports: Hypokalemia Hematologic History: Reports: None Immunologic History: Reports: None Oncologic (Cancer) History: Reports: None Dermatologic History: Reports: None - Infectious Disease History Infectious Disease History: Reports: Herpes (Positive herpes type I screen at [facility] in October 2018) - Past Surgical History Head Surgeries/Procedures: Reports: None HEENT Surgical History: Reports: None Cardiovascular Surgical History: Reports: None Respiratory Surgical History: Reports: None GI Surgical History: Reports: None Female Surgical History: Reports: None Endocrine Surgical History: Reports: None Neurological Surgical History: Reports: None Musculoskeletal Surgical History: Reports: None Oncologic Surgical History: Reports: None Dermatological Surgical History: Reports: None - Past Imaging History Past Imaging History: Reports: CAT Scan (CT scan of the head on 10/24/2018), EEG (Positive for seizure disorder as above at [facility] in October 2018.), MRI (MRI of the brain on 10/24/2018) Social & Family History - Tobacco Use Smoking Status *Q: Current Every Day Smoker Tobacco Use Within Last Twelve Months: Cigarettes Years of Tobacco use: 6 Packs/Tins Daily: 0.3 Packs/Tins Daily Comment: Maximum use of 1/2 pack/day. Used Tobacco, but Quit: No Smoking Cessation Information Provided To Patient: Yes Second Hand Smoke Exposure: No Second Hand Smoke Education Provided: No - Caffeine Use Caffeine Use: Reports: None - Alcohol Use Alcohol Use History: Yes Days Per Week of Alcohol Use: 0 Number of Drinks Per Day: 3 Number of Drinks Per Day Comment: Usually wine every 2 months. No previous DWIs, problems with alcohol abuse, etc. Total Drinks Per Week: 0 Alcohol Use in Last Twelve Months: Yes - Recreational Drug Use Recreational Drug Use: Yes Drug Use in Last 12 Months: Yes Recreational Drug Type: Reports: Marijuana/Hashish (Positive marijuana screen in October 2018 as above.). Denies: Amphetamines (Speed), Heroin, Inhalants (Glues, Solvents, Aerosols), LSD (Acid), Methamphetamine, Morphine, Oxycodone - Living Situation & Occupation Living situation: Reports: Single (Never however 2 children), Alone Occupation: Employed ([employer]) Review of Systems - Review of Systems Review Of Systems: Comprehensive ROS is negative, except as noted in HPI. ED EXAM, GENERAL - Physical Exam Exam: See Below Exam Limited By: No Limitations General Appearance: Alert, WD/WN, No Apparent Distress Head: Atraumatic, Normocephalic. No: Facial Swelling, Facial Tenderness, Sinus Tenderness Neck: Normal Inspection, Supple, Non-Tender, Full Range of Motion. No: Lymphadenopathy (L), Lymphadenopathy (R), Thyromegaly Respiratory/Chest: No Respiratory Distress, Lungs Clear, Normal Breath Sounds, No Accessory Muscle Use, Chest Non-Tender. No: Pleural Rub, Retractions Cardiovascular: Normal Peripheral Pulses, Regular Rate, Rhythm, No Edema, No Gallop, No JVD, No Murmur, No Rub. No: Gallop/S3, Gallop/S4, Friction Rub Peripheral Pulses: 2+: Radial (L), Radial (R) GI/Abdominal: Normal Bowel Sounds, Soft, Non-Tender, No Organomegaly, No Distention, No Abnormal Bruit, No Mass, Pelvis Stable. No: Guarding (Female) Exam: Deferred Rectal (Female) Exam: Deferred Back Exam: Normal Inspection, Full Range of Motion. No: CVA Tenderness (L), CVA Tenderness (R), Muscle Spasm Extremities: Normal Range of Motion, No Pedal Edema, Normal Capillary Refill, Arm Pain (As above). No: Non-Tender (Mild tenderness over the dorsal right wrist and mid dorsal right hand with no snuffbox tenderness, deformity, swelling, ecchymosis, etc. No evidence of deformity, crepitation, dislocation, etc. 2 small 0.5 cm superficial lacerations over the mid dorsal aspect of the right hand with no foreign body and no need for repair.), Joint Swelling, Angélica's Sign Neurological: Alert, Oriented, CN II-XII Intact, Normal Cognition, Normal Gait, No Motor/Sensory Deficits Psychiatric: Normal Affect, Normal Mood Skin Exam: Wound/Incision (As above). No: Diaphoretic Lymphatic: No Adenopathy Course - Vital Signs Last Recorded V/S: See paper ER record - Orders/Labs/Meds Orders: Active Orders 24 hr Category Date Time Status Hand Comp Min 3V Rt [CR] Routine Exams 06/16/20 Taken Wrist Comp Min 3V Rt [CR] Routine Exams 06/16/20 Taken Labs: None Meds: Medications Discontinued Medications Generic Name Dose Route Start Last Admin Trade Name Freq PRN Reason Stop Dose Admin Diphtheria/Tetanus/Acell Pertussis Confirm 06/16/20 07:53 Adacel Administered 06/16/20 07:54 Dose 0.5 ml .ROUTE .STK-MED ONE Neomycin/Polymyxin/Bacitracin Confirm 06/16/20 07:51 Triple Antibiotic Oint Administered 06/16/20 07:52 Dose 1 each .ROUTE .STK-MED ONE - Radiology Interpretation Free Text/Narrative:: X-rays of the right hand, complete, shows no evidence of fracture, dislocation, foreign body, etc. X-rays of the right wrist, complete, shows no evidence of fracture, dislocation, etc. Departure - Departure Time of Disposition: 08:02 Disposition: Home, Self-Care 01 Condition: Good Clinical Impression: Tobacco abuse counseling, Mixed anxiety depressive disorder, Laceration, Sprain Asthma Qualifiers: Asthma severity: mild Asthma persistence: intermittent Asthma complication type: uncomplicated Qualified Code(s): J45.20 - Mild intermittent asthma, uncomplicated - Discharge Information *PRESCRIPTION DRUG MONITORING PROGRAM REVIEWED*: Not Applicable *COPY OF PRESCRIPTION DRUG MONITORING REPORT IN PATIENT SABRINA: Not Applicable Referrals: PCP,None [Primary Care Provider] - Forms: ED Department Discharge Additional Instructions: See paper ER record - Problem List & Annotations (1) Sprain SNOMED Code(s): 200471898 Code(s): T14.8XXA - OTHER INJURY OF UNSPECIFIED BODY REGION, INITIAL ENCOUNTER Status: Acute Priority: High Current Visit: Yes Onset Date: 06/16/20 Annotation/Comment:: Minor muscle sprain/contusions of the right hand and right wrist with no significant injuries. Symptomatic relief as per discharge instructions. The patient wanted to go back to work today. Workmen's Compensation and [employer] work excuse forms were completed. (2) Laceration SNOMED Code(s): 817884078 Code(s): SEI1758 - Status: Acute Priority: Medium Current Visit: Yes Onset Date: 06/16/20 Annotation/Comment:: Superficial lacerations of the right hand not requiring repair. TDAP was given. Wound care instructions were discussed. (3) Asthma SNOMED Code(s): 736429460 Code(s): J45.909 - UNSPECIFIED ASTHMA, UNCOMPLICATED Status: Chronic Priority: Medium Current Visit: Yes Annotation/Comment:: Stable by history with no recent fever or bronchitic type symptoms. Qualifiers: Asthma severity: mild Asthma persistence: intermittent Asthma complication type: uncomplicated Qualified Code(s): J45.20 - Mild intermittent asthma, uncomplicated (4) Mixed anxiety depressive disorder SNOMED Code(s): 277309178 Code(s): F41.8 - OTHER SPECIFIED ANXIETY DISORDERS Status: Acute Priority: Medium Current Visit: Yes Annotation/Comment:: Stable by history. Continue to observe closely by her regular providers. Note previous marijuana use. (5) Tobacco abuse counseling SNOMED Code(s): 470129299, 237397202, 873762425 Code(s): Z71.6 - TOBACCO ABUSE COUNSELING Status: Chronic Priority: Medium Current Visit: Yes Annotation/Comment:: Tobacco cessation was once again strongly encouraged with information provided at discharge. - Problem List Review Problem List Initiated/Reviewed/Updated: Yes - My Orders Last 24 Hours: My Active Orders 06/16/20 Hand Comp Min 3V Rt [CR] Routine Wrist Comp Min 3V Rt [CR] Routine - Assessment/Plan Last 24 Hours: My Active Orders 06/16/20 Hand Comp Min 3V Rt [CR] Routine Wrist Comp Min 3V Rt [CR] Routine Assessment:: As above Plan: As above. Extensive precautions were given to the patient, who is in agreement with the treatment plan. See Patient Instructions for further treatment and plan. EMR was down. See paper ER record for additional information.
== END 2020-06-16 08:02 | disposition home or self-care (01) ==
LOC: LL.ED 07:08
DX: S61.411A Laceration without foreign body of right hand, initial encounter (principal); S63.501A Unspecified sprain of right wrist, initial encounter; J45.20 Mild intermittent asthma, uncomplicated; F41.8 Other specified anxiety disorders; J45.909 Unspecified asthma, uncomplicated; Z71.6 Tobacco abuse counseling; F17.210 Nicotine dependence, cigarettes, uncomplicated; Z79.899 Other long term (current) drug therapy; W23.0XXA Caught, crushed, jammed, or pinched between moving objects, initial encounter; Y99.0 Civilian activity done for income or pay
CPT/HCPCS: 73110-RT; 73130-RT; 99283-25

== ENCOUNTER 2021-04-21 07:16 | Emergency (ER) | payer BC, OTHER ==
[2021-04-21] MEDS ORDERED: Sodium Chloride 0.9% 10 ML Syringe FLUSH PRN (07:37)
[2021-04-21] MEDS ORDERED: Sodium Chloride 0.9% 1,000 ML IV ONE ×2 (07:39→09:32)
[2021-04-21] MEDS ORDERED: SUMAtriptan 6 MG/0.5 ML SDV SUBCUT ONE (07:39)
[2021-04-21] MEDS ORDERED: Ondansetron 4 MG/2 ML SDV IVPUSH ONE (07:40)
--- NOTE | 2021-04-21 07:43 | EDM.PDOC ---
ED HPI GENERAL MEDICAL PROBLEM - General Chief Complaint: General Stated Complaint: dizzy, headache, vomiting, alcohol Time Seen by Provider: 04/21/21 07:23 Source of Information: Reports: Patient History Limitations: Reports: No Limitations - History of Present Illness INITIAL COMMENTS - FREE TEXT/NARRATIVE: Patient comes to ER with complaint of 48 hours nausea/emesis/BALBUENA that started . Has history of migraine BALBUENA. Denies fevers/chills. No bowel changes. No URI complaints. No blood in emesis/stool reported. Did say that she stopped alcohol use suddenly last Friday and wondered if the symptoms might be related to withdrawal. Did not have any DTs Fri/Fri/Fri. So she did drink some ETOH to see if it would help once these problems arose/noted no change her symptoms. No UTI complaints. No focal neuro changes. No other acute changes reported. headache bilat temples Pain Score (Numeric/FACES): 10 - Related Data Allergies Allergy/AdvReac Type Severity Reaction Status Date / Time No Known Allergies Allergy Verified 04/21/21 07:27 Home Meds: Home Meds Albuterol Sulfate [Proair Respiclick] 2 puff IH Q4HR PRN 07/03/19 [History] Fluticasone Propionate [Flonase] 2 sprays INH DAILY 04/21/21 [History] Fluticasone/Vilanterol [Breo Ellipta 200-25 MCG Inhalation Kit] 1 puff INH DAILY 04/21/21 [History] Non-Formulary Medication [NF Drug] 1 puff INH DAILY 04/21/21 [History] Zafirlukast 1 tab PO BID 04/21/21 [History] Past Medical History HEENT History: Reports: Allergic Rhinitis Cardiovascular History: Reports: Arrhythmia, Other (See Below). Denies: Hypertension, Syncope Other Cardiovascular History: Sinus arrhythmia and PVCs. Questionable anterior wall cardiac ischemia versus nonspecific changes secondary to seizure by EKG on 10/24/2018 with no cardiac work-up. 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 Denies: Spontaneous Other MATHEMATICAL SCIENCES PROFESSOR History: Full term without complications during pregnancies or deliveries Musculoskeletal History: Reports: Other (See Below). Denies: Fracture Other Musculoskeletal History: Rhabdomyolysis secondary to seizure on 10/24/2018. Neurological History: Reports: Seizure, Other (See Below) Other Neuro History: Complex partial seizure disorder on 10/24/2018 with transfer to [facility] in [place] and further work-up as below. Note acute encephalopathy at that time. Psychiatric History: Reports: Addiction, Anxiety, Depression, Other (See Below) Other Psychiatric History: Positive marijuana screen in October 2018 at [place]. Endocrine/Metabolic History: Reports: Hypokalemia Hematologic History: Reports: None Immunologic History: Reports: None Oncologic (Cancer) History: Reports: None Dermatologic History: Reports: None - Infectious Disease History Infectious Disease History: Reports: Herpes (Positive herpes type I screen at [place] in October 2018) - Past Surgical History Head Surgeries/Procedures: Reports: None HEENT Surgical History: Reports: None Cardiovascular Surgical History: Reports: None Respiratory Surgical History: Reports: None GI Surgical History: Reports: None Female Surgical History: Reports: None Endocrine Surgical History: Reports: None Neurological Surgical History: Reports: None Musculoskeletal Surgical History: Reports: None Oncologic Surgical History: Reports: None Dermatological Surgical History: Reports: None - Past Imaging History Past Imaging History: Reports: CAT Scan (CT scan of the head on 10/24/2018), EEG (Positive for seizure disorder as above at [facility] in October 2018.), MRI (MRI of the brain on 10/24/2018) Social & Family History - Caffeine Use Caffeine Use: Reports: None - Living Situation & Occupation Living situation: Reports: Single (Never however 2 children), Alone Occupation: Employed ([employer]) ED ROS GENERAL - Review of Systems Review Of Systems: Comprehensive ROS is negative, except as noted in HPI. ED EXAM, GENERAL - Physical Exam Exam: See Below Exam Limited By: No Limitations General Appearance: Alert, No Apparent Distress, Other (Sitting in darkened room/head down) Eye Exam: Bilateral Eye: EOMI, PERRL Ears: Hearing Grossly Normal Nose: No: Nasal Deformity, Nasal Swelling, Nasal Drainage Throat/Mouth: Normal Lips, Normal Voice, No Airway Compromise Head: Atraumatic, Normocephalic Neck: Supple, Non-Tender, Full Range of Motion Respiratory/Chest: No Respiratory Distress, Lungs Clear, Normal Breath Sounds, No Accessory Muscle Use Cardiovascular: Regular Rate, Rhythm, No Murmur GI/Abdominal: Soft, Non-Tender, No Distention (Female) Exam: Deferred Rectal (Female) Exam: Deferred Back Exam: Paraspinal Tenderness, Vertebral Tenderness. No: CVA Tenderness (L), CVA Tenderness (R) Extremities: Normal Range of Motion Neurological: Alert, Oriented, CN II-XII Intact, Normal Cognition, Normal Gait, No Motor/Sensory Deficits Psychiatric: Normal Mood Skin Exam: Warm, Dry, Intact Course - Vital Signs Last Recorded V/S: Last Vital Signs Temp 36.1 C 04/21/21 07:18 Pulse 94 04/21/21 07:18 Resp 16 04/21/21 07:18 BP 110/59 L 04/21/21 07:18 Pulse Ox 99 04/21/21 07:18 - Orders/Labs/Meds Orders: Active Orders 24 hr Category Date Time Status Chest 2V [CR] Stat Exams 04/21/21 11:22 Taken Sodium Chloride 0.9% [Saline Flush] Med 04/21/21 07:37 Active 10 ml FLUSH ASDIRECTED PRN Saline Lock Insert [OM.PC] Routine Oth 04/21/21 07:37 Ordered Medication Orders Sodium Chloride (Sodium Chloride 0.9% 10 Ml Syringe) 10 ml FLUSH ASDIRECTED PRN PRN Reason: Keep Vein Open Last Admin: 04/21/21 08:36 Dose: 10 ml Documented by: MARYLIN Labs: Laboratory Tests 04/21/21 04/21/21 04/21/21 Range/Units 07:40 07:40 07:40 WBC 4.6 (4.0-10.2) K/uL RBC 4.59 (3.77-5.09) M/uL Hgb 13.6 (11.7-15.5) g/dL Hct 41.9 (34.0-46.0) % MCV 91.3 D (84.0-98.0) fL MCH 29.6 (28.2-33.3) pg MCHC 32.5 (31.7-36.0) g/dL RDW 16.3 H (11.2-14.1) % Plt Count 382 H (150-350) K/uL Neut % (Auto) 49.3 (45.0-80.0) % Lymph % (Auto) 25.7 (10.0-50.0) % Winston % (Auto) 16.2 H (2.0-14.0) % Eos % (Auto) 8.4 H (0.0-5.0) % Baso % (Auto) 0.4 (0.0-2.0) % Neut # (Auto) 2.28 (1.40-7.00) K/uL Lymph # (Auto) 1.19 (0.50-3.50) K/uL Winston # (Auto) 0.75 (0.00-1.00) K/uL Eos # (Auto) 0.39 (0.00-0.50) K/uL Baso # (Auto) 0.02 (0.00-0.20) K/uL Sodium 143 (136-145) mmol/L Potassium 4.4 (3.5-5.1) mmol/L Chloride 103 (98-107) mmol/L Carbon Dioxide 28.8 (21.0-32.0) mmol/L BUN 6 L (7-18) mg/dL Creatinine 0.54 (0.51-1.17) mg/dL Est Cr Clr Drug Dosing 119.13 mL/min Estimated GFR (MDRD) > 60 mL/min Glucose 93 (70-99) mg/dL Lactic Acid 1.2 (0.4-2.0) mmol/L Calcium 9.5 (8.5-10.1) mg/dL Magnesium 1.8 (1.8-2.4) mg/dL Total Bilirubin 0.2 (0.2-1.0) mg/dL AST 23 (15-37) U/L ALT 32 (12-78) U/L Alkaline Phosphatase 96 (46-116) IU/L Total Protein 7.7 (6.4-8.2) g/dL Albumin 3.5 (3.4-5.0) g/dL Specimen Type Urine Color Urine Appearance Urine pH (5.0-9.0) Ur Specific Kent (1.005-1.030) Urine Protein (NEGATIVE) mg/dL Urine Glucose (UA) (NEGATIVE) mg/dL Urine Ketones (NEGATIVE) mg/dL Urine Occult Blood (NEGATIVE) Urine Nitrite (NEGATIVE) Urine Bilirubin (NEGATIVE) Urine Urobilinogen (0.2-1.0) E.U./dL Ur Leukocyte Esterase (NEGATIVE) Urine RBC /HPF Urine WBC /HPF Ur Epithelial Cells /LPF Urine Bacteria (NONE TO FEW) /HPF Urine HCG, Qual Urine Opiates Screen (NEGATIVE) Ur Buprenorphine Scrn (NEGATIVE) Ur Oxycodone Screen (NEGATIVE) Ur EDDP (Meth Metab) (NEGATIVE) Ur Barbiturates Screen (NEGATIVE) Ur Tricyclics Screen (NEGATIVE) Ur Amphetamine Screen (NEGATIVE) U Methamphetamines Scrn (NEGATIVE) Urine MDMA Screen (NEGATIVE) U Benzodiazepines Scrn (NEGATIVE) U Cocaine Metab Screen (NEGATIVE) U Marijuana (THC) Screen (NEGATIVE) Ethyl Alcohol 0.000 (0.000-0.080) g/dL 04/21/21 04/21/21 04/21/21 Range/Units 08:20 08:20 08:20 WBC (4.0-10.2) K/uL RBC (3.77-5.09) M/uL Hgb (11.7-15.5) g/dL Hct (34.0-46.0) % MCV (84.0-98.0) fL MCH (28.2-33.3) pg MCHC (31.7-36.0) g/dL RDW (11.2-14.1) % Plt Count (150-350) K/uL Neut % (Auto) (45.0-80.0) % Lymph % (Auto) (10.0-50.0) % Winston % (Auto) (2.0-14.0) % Eos % (Auto) (0.0-5.0) % Baso % (Auto) (0.0-2.0) % Neut # (Auto) (1.40-7.00) K/uL Lymph # (Auto) (0.50-3.50) K/uL Winston # (Auto) (0.00-1.00) K/uL Eos # (Auto) (0.00-0.50) K/uL Baso # (Auto) (0.00-0.20) K/uL Sodium (136-145) mmol/L Potassium (3.5-5.1) mmol/L Chloride (98-107) mmol/L Carbon Dioxide (21.0-32.0) mmol/L BUN (7-18) mg/dL Creatinine (0.51-1.17) mg/dL Est Cr Clr Drug Dosing mL/min Estimated GFR (MDRD) mL/min Glucose (70-99) mg/dL Lactic Acid (0.4-2.0) mmol/L Calcium (8.5-10.1) mg/dL Magnesium (1.8-2.4) mg/dL Total Bilirubin (0.2-1.0) mg/dL AST (15-37) U/L ALT (12-78) U/L Alkaline Phosphatase (46-116) IU/L Total Protein (6.4-8.2) g/dL Albumin (3.4-5.0) g/dL Specimen Type Urinvoid Urine Color Light yellow Urine Appearance Clear Urine pH 6.5 (5.0-9.0) Ur Specific Kent 1.010 (1.005-1.030) Urine Protein Negative (NEGATIVE) mg/dL Urine Glucose (UA) Negative (NEGATIVE) mg/dL Urine Ketones Negative (NEGATIVE) mg/dL Urine Occult Blood Negative (NEGATIVE) Urine Nitrite Negative (NEGATIVE) Urine Bilirubin Negative (NEGATIVE) Urine Urobilinogen 0.2 (0.2-1.0) E.U./dL Ur Leukocyte Esterase Trace H (NEGATIVE) Urine RBC Not seen /HPF Urine WBC 0-5 /HPF Ur Epithelial Cells Few /LPF Urine Bacteria Few (NONE TO FEW) /HPF Urine HCG, Qual Negative Urine Opiates Screen Negative (NEGATIVE) Ur Buprenorphine Scrn Negative (NEGATIVE) Ur Oxycodone Screen Negative (NEGATIVE) Ur EDDP (Meth Metab) Negative (NEGATIVE) Ur Barbiturates Screen Negative (NEGATIVE) Ur Tricyclics Screen Negative (NEGATIVE) Ur Amphetamine Screen Negative (NEGATIVE) U Methamphetamines Scrn Negative (NEGATIVE) Urine MDMA Screen Negative (NEGATIVE) U Benzodiazepines Scrn Negative (NEGATIVE) U Cocaine Metab Screen Negative (NEGATIVE) U Marijuana (THC) Screen Negative (NEGATIVE) Ethyl Alcohol (0.000-0.080) g/dL Meds: Medications Generic Name Dose Route Start Last Admin Trade Name Freq PRN Reason Stop Dose Admin Sodium Chloride 10 ml 04/21/21 07:37 04/21/21 08:36 Sodium Chloride 0.9% 10 Ml Syringe FLUSH 10 ml ASDIRECTED PRN Administration Keep Vein Open Discontinued Medications Generic Name Dose Route Start Last Admin Trade Name Freq PRN Reason Stop Dose Admin Sodium Chloride 1,000 mls @ 999 mls/hr 04/21/21 07:39 04/21/21 08:36 Normal Saline IV 04/21/21 08:39 999 mls/hr .BOLUS ONE Administration Sodium Chloride 1,000 mls @ 999 mls/hr 04/21/21 09:32 Normal Saline IV 04/21/21 10:32 .BOLUS ONE Ketorolac Tromethamine 30 mg 04/21/21 09:29 Ketorolac 30 Mg/Ml Sdv IVPUSH 04/21/21 09:30 ONETIME ONE Meclizine HCl 25 mg 04/21/21 08:59 04/21/21 09:15 Meclizine 25 Mg Tab PO 04/21/21 09:00 25 mg ONETIME ONE Administration Ondansetron HCl 4 mg 04/21/21 07:40 04/21/21 08:35 Ondansetron 4 Mg/2 Ml Sdv IVPUSH 04/21/21 07:41 4 mg ONETIME ONE Administration Sumatriptan Succinate 6 mg 04/21/21 07:39 04/21/21 08:35 Sumatriptan 6 Mg/0.5 Ml Sdv SUBCUT 04/21/21 07:40 6 mg ONETIME ONE Administration Thiamine HCl 100 mg 04/21/21 08:20 04/21/21 09:15 Thiamine 100 Mg Tab PO 04/21/21 08:21 100 mg ONETIME ONE Administration - Re-Assessments/Exams Free Text/Narrative Re-Assessment/Exam: 04/21/21 08:27 Labs drawn. Imitrex/IV fluids/Zofran ordered. 04/21/21 09:30 Headache improving. Still dizzy. Frequently gets dizzy with her migraines but usually does not last this long. Meclizine ordered. Toradol ordered. Patient declined head CT/reports that she has had previous head CTs without any unusual findings. Labs unremarkable, including lactic/drug screen/etoh. No elevation of WBC. 04/21/21 11:53 Improved. Still with some dizziness. Wanted to know options. Reviewed pros/cons of head ct again and patient declined. Offered observation admission and patient declined. Would like to go home. Will send with ER stock bottle of Meclizine for prn use. Suspect patient is having migraine. Cannot rule out VGE/viral illness. Do not suspect there is component of DTs at this time given that patient did well for full three days after discontinuing ETOH use. To follow up with PCP. TO follow up in ER as needed Departure - Departure Time of Disposition: 11:55 Disposition: Home, Self-Care 01 Condition: Good Clinical Impression: Dizziness Nausea & vomiting Qualifiers: Vomiting type: unspecified Vomiting Intractability: non-intractable Qualified Code(s): R11.2 - Nausea with vomiting, unspecified Headache Qualifiers: Headache type: unspecified Headache chronicity pattern: acute headache Intractability: not intractable Qualified Code(s): R51.9 - Headache, unspecified - Discharge Information *PRESCRIPTION DRUG MONITORING PROGRAM REVIEWED*: Not Applicable *COPY OF PRESCRIPTION DRUG MONITORING REPORT IN PATIENT SABRINA: Not Applicable Instructions: Nausea and Vomiting, Adult, [id number], Dizziness, [id number] Forms: ED Department Discharge Additional Instructions: Home/rest. Try Meclizine 1 tab every 8 hours to help with dizziness. Follow up as needed in ER if symptoms return/new problems develop. Follow up with your PCP next week. Sepsis Event Note (ED) - Evaluation Sepsis Screening Result: No Definite Risk - Focused Exam Vital Signs: Vital Signs Temp Pulse Resp BP Pulse Ox 04/21/21 07:18 36.1 C 94 16 110/59 L 99 - My Orders Last 24 Hours: My Active Orders 04/21/21 07:37 Sodium Chloride 0.9% [Saline Flush] 10 ml FLUSH ASDIRECTED PRN Saline Lock Insert [OM.PC] Routine 04/21/21 11:22 Chest 2V [CR] Stat - Assessment/Plan Last 24 Hours: My Active Orders 04/21/21 07:37 Sodium Chloride 0.9% [Saline Flush] 10 ml FLUSH ASDIRECTED PRN Saline Lock Insert [OM.PC] Routine 04/21/21 11:22 Chest 2V [CR] Stat
[2021-04-21] MEDS ORDERED: Thiamine 100 MG Tab PO ONE (08:20)
[2021-04-21 08:28] LABS: CHLORIDE,CL 103 mmol/L (98-107); SODIUM,NA 143 mmol/L (136-145)
[2021-04-21 08:45] LABS: BARBITURATE SCREEN,URINE NEGATIVE (NEGATIVE); BENZODIAZEPINES SCREEN,URINE NEGATIVE (NEGATIVE); EDDP,URINE SCREEN NEGATIVE (NEGATIVE); TCA SCREEN,URINE NEGATIVE (NEGATIVE); THC SCREEN,URINE 50 NG/ML NEGATIVE (NEGATIVE)
[2021-04-21 08:47] LABS: BUPRENORPHINE SCREEN,URINE NEGATIVE (NEGATIVE)
[2021-04-21] MEDS ORDERED: Meclizine 25 MG Tab PO ONE (08:59)
[2021-04-21] MEDS ORDERED: Ketorolac 30 MG/ML SDV IVPUSH ONE (09:29)
== END 2021-04-21 12:13 | disposition home or self-care (01) ==
LOC: LL.ED 07:16
DX: R42 Dizziness and giddiness (principal); R11.2 Nausea with vomiting, unspecified; R51.9 Headache, unspecified; J45.909 Unspecified asthma, uncomplicated; Z79.899 Other long term (current) drug therapy
CPT/HCPCS: 36415; 71046; 80053; 80305-QW; 80307; 81001; 81025; 83605; 83735; 85025; 96372; 96374; 99284; 99284-25; A9270-GY; J2405; J3030; J7030

== ENCOUNTER 2021-06-19 01:38 | Emergency (ER) | payer BC ==
[2021-06-19] MEDS ORDERED: Sodium Chloride 0.9% 1,000 ML IV ONE (01:46)
[2021-06-19] MEDS ORDERED: diphenhydrAMINE 50 MG/ML SDV IVPUSH ONE (01:56)
[2021-06-19] MEDS ORDERED: Ketorolac 30 MG/ML SDV IVPUSH ONE (01:56)
--- NOTE | 2021-06-19 02:06 | EDM.PDOC ---
ED HPI GENERAL MEDICAL PROBLEM - General Chief Complaint: General Stated Complaint: nausea vomitting Time Seen by Provider: 06/19/21 01:50 Source of Information: Reports: Patient, EMS History Limitations: Reports: No Limitations - History of Present Illness INITIAL COMMENTS - FREE TEXT/NARRATIVE: Patient presents by EMS for nausea, vomiting, weakness for 2 weeks. Patient states she has had epigastric pain, nausea, vomiting, difficulty keeping anything down for two weeks. She works at [employer] and there has been confirmed covid so she went to [facility] 4 days ago. They tested her for covid and it was negative. She went home and continued to be there. Someone was at her home tonight and she was dizziness, lightheaded, and fell due to this and they decided to call EMS. She has had fevers but they are improving. no cough. Has had her covid vaccines, three months ago. Smoker and drinks alcohol occasionally. 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 - Related Data Allergies Allergy/AdvReac Type Severity Reaction Status Date / Time No Known Allergies Allergy Verified 04/21/21 07:27 Home Meds: Home Meds Albuterol Sulfate [Proair Respiclick] 2 puff IH Q4HR PRN 07/03/19 [History] Fluticasone Propionate [Flonase] 2 sprays INH DAILY 04/21/21 [History] Fluticasone/Vilanterol [Breo Ellipta 200-25 MCG Inhalation Kit] 1 puff INH DAILY 04/21/21 [History] Non-Formulary Medication [NF Drug] 1 puff INH DAILY 04/21/21 [History] Ondansetron [Zofran ODT] 4 mg PO Q6H PRN #12 tab.dis 06/19/21 [Rx] Sucralfate [Carafate] 1 gm PO Q6HR 10 Days #30 tab 06/19/21 [Rx] Past Medical History HEENT History: Reports: Allergic Rhinitis Cardiovascular History: Reports: Arrhythmia, Other (See Below) Other Cardiovascular History: Sinus arrhythmia and PVCs. Questionable anterior wall cardiac ischemia versus nonspecific changes secondary to seizure by EKG on 10/24/2018 with no cardiac work-up. Respiratory History: Reports: Asthma, Bronchitis, Recurrent Gastrointestinal History: Reports: None Genitourinary History: Reports: None DIE WELDER History: Reports: Other DIE WELDER History: Full term without complications during pregnancies or deliveries Musculoskeletal History: Reports: Other (See Below) Other Musculoskeletal History: Rhabdomyolysis secondary to seizure on 10/24/2018. Neurological History: Reports: Seizure, Other (See Below) Other Neuro History: Complex partial seizure disorder on 10/24/2018 with transfer to [facility] in [place] and further work-up as below. Note acute encephalopathy at that time. Psychiatric History: Reports: Addiction, Anxiety, Depression, Other (See Below) Other Psychiatric History: Positive marijuana screen in October 2018 at [place]. Endocrine/Metabolic History: Reports: Hypokalemia Hematologic History: Reports: None Immunologic History: Reports: None Oncologic (Cancer) History: Reports: None Dermatologic History: Reports: None - Infectious Disease History Infectious Disease History: Reports: Herpes - Past Surgical History Head Surgeries/Procedures: Reports: None HEENT Surgical History: Reports: None Cardiovascular Surgical History: Reports: None Respiratory Surgical History: Reports: None GI Surgical History: Reports: None Female Surgical History: Reports: None Endocrine Surgical History: Reports: None Neurological Surgical History: Reports: None Musculoskeletal Surgical History: Reports: None Oncologic Surgical History: Reports: None Dermatological Surgical History: Reports: None - Past Imaging History Past Imaging History: Reports: CAT Scan (CT scan of the head on 10/24/2018), EEG (Positive for seizure disorder as above at [facility] in October 2018.), MRI (MRI of the brain on 10/24/2018) Social & Family History - Tobacco Use Tobacco Use Status *Q: Current Every Day Tobacco User Years of Tobacco use: 4 Packs/Tins Daily: 0.5 - Caffeine Use Caffeine Use: Reports: Soda - Alcohol Use Alcohol Use History: Yes Alcohol Use in Last Twelve Months: Yes - Recreational Drug Use Recreational Drug Use: No - Living Situation & Occupation Living situation: Reports: Single (Never however 2 children), Alone Occupation: Employed ([employer]) [facility] [email or web address]] GENERAL - Review of Systems Review Of Systems: See Below Constitutional: Reports: Malaise, Weakness, Fatigue, Decreased Appetite HEENT: Reports: No Symptoms. Denies: Rhinitis, Sinus Problem Respiratory: Reports: Cough. Denies: Shortness of Breath Cardiovascular: Reports: Lightheadedness, Palpitations. Denies: Chest Pain, Dyspnea on Exertion, Syncope GI/Abdominal: Reports: Abdominal Pain, Constipation, Decreased Appetite, Nausea, Vomiting. Denies: Diarrhea : Reports: Other (decreased urine) Musculoskeletal: Reports: No Symptoms Skin: Reports: No Symptoms Neurological: Reports: Dizziness, Headache, Weakness ED EXAM, GENERAL - Physical Exam Exam: See Below Exam Limited By: No Limitations General Appearance: Alert, WD/WN, No Apparent Distress Eye Exam: Bilateral Eye: EOMI, Normal Inspection, PERRL Ears: Normal External Exam, Normal Canal, Hearing Grossly Normal Nose: Normal Inspection, Normal Mucosa Throat/Mouth: Other (dry mucous membranes) Head: Atraumatic Neck: Normal Inspection, Supple Respiratory/Chest: No Respiratory Distress, Lungs Clear, Normal Breath Sounds Cardiovascular: Normal Peripheral Pulses, Regular Rate, Rhythm, No Edema, No Murmur GI/Abdominal: Normal Bowel Sounds, Soft, Non-Tender, No Abnormal Bruit Back Exam: Normal Inspection Extremities: Normal Inspection, Normal Range of Motion, No Pedal Edema Neurological: Alert, Oriented, CN II-XII Intact, Normal Cognition, No Motor/Sensory Deficits Psychiatric: Normal Affect Course - Vital Signs Last Recorded V/S: Last Vital Signs Temp 36.8 C 06/19/21 01:44 Pulse 76 06/19/21 01:44 Resp 14 06/19/21 01:44 BP 115/74 06/19/21 01:44 Pulse Ox 98 06/19/21 01:44 - Orders/Labs/Meds Orders: Active Orders 24 hr Category Date Time Status CORONAVIRUS COVID-19 ALFONZO [MOLEC] Stat Lab 06/19/21 02:06 Received UA RFX ABBI AND CULT IF INDIC [URIN] Stat Lab 06/19/21 01:46 Ordered Labs: Laboratory Tests 06/19/21 06/19/21 06/19/21 Range/Units 01:57 01:57 01:57 WBC 8.8 (4.0-10.2) K/uL RBC 4.68 (3.77-5.09) M/uL Hgb 13.6 (11.7-15.5) g/dL Hct 39.5 (34.0-46.0) % MCV 84.4 D (84.0-98.0) fL MCH 29.1 (28.2-33.3) pg MCHC 34.4 (31.7-36.0) g/dL RDW 18.4 H (11.2-14.1) % Plt Count 313 (150-350) K/uL Neut % (Auto) 43.6 L (45.0-80.0) % Lymph % (Auto) 39.3 (10.0-50.0) % [place] % (Auto) 11.8 (2.0-14.0) % Eos % (Auto) 5.0 (0.0-5.0) % Baso % (Auto) 0.3 (0.0-2.0) % Neut # (Auto) 3.82 (1.40-7.00) K/uL Lymph # (Auto) 3.44 (0.50-3.50) K/uL [place] # (Auto) 1.03 H (0.00-1.00) K/uL Eos # (Auto) 0.44 (0.00-0.50) K/uL Baso # (Auto) 0.03 (0.00-0.20) K/uL Sodium 140 (136-145) mmol/L Potassium 3.2 L (3.5-5.1) mmol/L Chloride 102 (98-107) mmol/L Carbon Dioxide 25.9 (21.0-32.0) mmol/L Anion Gap 15.3 H (7-15) meq/L BUN 5 L (7-18) mg/dL Creatinine 0.64 (0.51-1.17) mg/dL Est Cr Clr Drug Dosing 100.52 mL/min Estimated GFR (MDRD) > 60 mL/min Glucose 95 (70-99) mg/dL Lactic Acid 0.9 (0.4-2.0) mmol/L Calcium 8.8 (8.5-10.1) mg/dL Total Bilirubin 0.8 (0.2-1.0) mg/dL AST 19 (15-37) U/L ALT 26 (12-78) U/L Alkaline Phosphatase 88 (46-116) IU/L C-Reactive Protein < 0.2 (<=0.9) mg/dL Total Protein 7.3 (6.4-8.2) g/dL Albumin 3.4 (3.4-5.0) g/dL Lipase 66 L (73-393) U/L HCG, Qual (NEGATIVE) SARS-CoV-2 Ag (Rapid) (NEGATIVE) 06/19/21 06/19/21 Range/Units 01:57 02:06 WBC (4.0-10.2) K/uL RBC (3.77-5.09) M/uL Hgb (11.7-15.5) g/dL Hct (34.0-46.0) % MCV (84.0-98.0) fL MCH (28.2-33.3) pg MCHC (31.7-36.0) g/dL RDW (11.2-14.1) % Plt Count (150-350) K/uL Neut % (Auto) (45.0-80.0) % Lymph % (Auto) (10.0-50.0) % [place] % (Auto) (2.0-14.0) % Eos % (Auto) (0.0-5.0) % Baso % (Auto) (0.0-2.0) % Neut # (Auto) (1.40-7.00) K/uL Lymph # (Auto) (0.50-3.50) K/uL [place] # (Auto) (0.00-1.00) K/uL Eos # (Auto) (0.00-0.50) K/uL Baso # (Auto) (0.00-0.20) K/uL Sodium (136-145) mmol/L Potassium (3.5-5.1) mmol/L Chloride (98-107) mmol/L Carbon Dioxide (21.0-32.0) mmol/L Anion Gap (7-15) meq/L BUN (7-18) mg/dL Creatinine (0.51-1.17) mg/dL Est Cr Clr Drug Dosing mL/min Estimated GFR (MDRD) mL/min Glucose (70-99) mg/dL Lactic Acid (0.4-2.0) mmol/L Calcium (8.5-10.1) mg/dL Total Bilirubin (0.2-1.0) mg/dL AST (15-37) U/L ALT (12-78) U/L Alkaline Phosphatase (46-116) IU/L C-Reactive Protein (<=0.9) mg/dL Total Protein (6.4-8.2) g/dL Albumin (3.4-5.0) g/dL Lipase (73-393) U/L HCG, Qual Negative (NEGATIVE) SARS-CoV-2 Ag (Rapid) Negative (NEGATIVE) Meds: Medications Discontinued Medications Generic Name Dose Route Start Last Admin Trade Name Freq PRN Reason Stop Dose Admin Al Hydroxide/Mg Hydroxide 30 ml 06/19/21 02:39 06/19/21 02:55 Gi Cocktail Oral Solution 30 Ml PO 06/19/21 02:40 30 ml ONETIME ONE Administration Diphenhydramine HCl 25 mg 06/19/21 01:56 06/19/21 02:26 Diphenhydramine 50 Mg/Ml Sdv IVPUSH 06/19/21 01:57 25 mg ONETIME ONE Administration Sodium Chloride 1,000 mls @ 999 mls/hr 06/19/21 01:46 06/19/21 02:27 Normal Saline IV 06/19/21 02:46 999 mls/hr .BOLUS ONE Administration Ketorolac Tromethamine 30 mg 06/19/21 01:56 06/19/21 02:27 Ketorolac 30 Mg/Ml Sdv IVPUSH 06/19/21 01:57 30 mg ONETIME ONE Administration Ondansetron HCl 4 mg 06/19/21 02:39 06/19/21 02:55 Ondansetron 4 Mg/2 Ml Sdv IVPUSH 06/19/21 02:40 4 mg ONETIME ONE Administration Potassium Chloride 40 meq 06/19/21 02:35 06/19/21 02:55 Potassium Chloride 20 Meq Tab.Er PO 06/19/21 02:36 40 meq ONETIME ONE Administration - Re-Assessments/Exams Free Text/Narrative Re-Assessment/Exam: 06/19/21 02:08 patient arrives via EMS for N/V/dizziness. wants to get rid of dizziness and can walk home. headache is typical for her. Denies drug use, states could be , no surgeries. no travel, no nahum food exposure 06/19/21 03:01 nausea is returning, however she is comfortable, texting on her phone. will give repeat dose of zofran and gi cocktailhas been taking 600 mg of motrin several times a day. Can give gastritis and rebound headache advised clinic appointment, will prescribe zofran and carafate 06/19/21 03:08 patient was asked multiple times about marijuana use and denies. concern for hyperemesis from cannibis Departure - Departure Time of Disposition: 03:07 Disposition: Home, Self-Care 01 Condition: Good Clinical Impression: Epigastric abdominal pain, Analgesic rebound headache, Hypokalemia due to inadequate potassium intake Nausea & vomiting Qualifiers: Vomiting type: unspecified Vomiting Intractability: non-intractable Qualified Code(s): R11.2 - Nausea with vomiting, unspecified - Discharge Information Prescriptions: Sucralfate [Carafate] 1 gm PO Q6HR 10 Days #30 tab Ondansetron [Zofran ODT] 4 mg PO Q6H PRN #12 tab.dis PRN Reason: Nausea Instructions: Nausea and Vomiting, Adult, Analgesic Rebound Headache, Abdominal Pain, Adult, [id number], Hypokalemia Referrals: Latricia Sifuentes INTEGRATION DEVELOPER [Primary Care Provider] - Forms: ED Department Discharge Additional Instructions: regular use of ibuprofen can cause the stomach to be raw and irritated. TAke the carafate after dissolving it in 8 ounces of water up to three times a day to help with this. limit use of ibuprofen, aleve and alcohol. Use the nausea medication as needed but it may cause constipation. Make appointment for follow up with PCP your potassium is low due to vomiting and lack of food intake. increase in diet, or purchase an over the counter supplement Sepsis Event Note (ED) - Evaluation Sepsis Screening Result: No Definite Risk - Focused Exam Vital Signs: Vital Signs Temp Pulse Resp BP Pulse Ox 06/19/21 01:44 36.8 C 76 14 115/74 98 - My Orders Last 24 Hours: My Active Orders 06/19/21 01:46 UA RFX ABBI AND CULT IF INDIC [URIN] Stat 06/19/21 02:06 CORONAVIRUS COVID-19 ALFONZO [MOLEC] Stat - Assessment/Plan Last 24 Hours: My Active Orders 06/19/21 01:46 UA RFX ABBI AND CULT IF INDIC [URIN] Stat 06/19/21 02:06 CORONAVIRUS COVID-19 ALFONZO [MOLEC] Stat
[2021-06-19 02:22] LABS: CHLORIDE,CL 102 mmol/L (98-107); SODIUM,NA 140 mmol/L (136-145)
[2021-06-19 02:24] LABS: ANION GAP 15.3 meq/L (7-15)
[2021-06-19] MEDS ORDERED: Potassium Chloride 20 MEQ Tab.ER PO ONE (02:35)
[2021-06-19] MEDS ORDERED: Ondansetron 4 MG/2 ML SDV IVPUSH ONE (02:39)
[2021-06-19] MEDS ORDERED: GI Cocktail Oral Solution 30 ML PO ONE (02:39)
== END 2021-06-19 03:35 | disposition home or self-care (01) ==
LOC: LL.ED 01:38
DX: E87.6 Hypokalemia (principal); G44.40 Drug-induced headache, not elsewhere classified, not intractable; T39.95XA Adverse effect of unspecified nonopioid analgesic, antipyretic and antirheumatic, initial encounter; R10.13 Epigastric pain; J45.909 Unspecified asthma, uncomplicated; Z72.0 Tobacco use; Z79.899 Other long term (current) drug therapy; Z20.822 Contact with and (suspected) exposure to COVID-19
CPT/HCPCS: 36415; 80053; 83605; 83690; 84703; 85025; 86140; 87426; 96374; 96375; 99285; A9270; J1200; J1885; J2405; J7030; 99284